=== PATIENT | female | born 1995 | race Caucasian/White ===

== ENCOUNTER 2018-04-06 21:04 | Emergency (ER) | payer MEDICAID ==
[~2018-04-06] VITALS: Ht 152.4 cm; Wt 65.8 kg
[2018-04-06 21:14] VITALS: BP 116/59
[2018-04-06 23:47] LABS: Urine Amorphous Crystal MOD /hpf (None Seen); Urine Bacteria FEW /hpf (None Seen); Urine Blood Negative /uL (Negative); Urine Specific Gravity 1.019 (1.001-1.035); Urine WBC 1 /hpf (0 - 5)
== END 2018-04-07 00:21 | disposition home or self-care (01) ==
LOC: ER 21:04
DX: A59.00 Urogenital trichomoniasis, unspecified (principal); Z20.2 Contact with and (suspected) exposure to infections with a predominantly sexual mode of transmission
CPT/HCPCS: 81001; 81025